=== PATIENT | female | born 1985 | race Caucasian/White ===

== ENCOUNTER 2021-08-17 14:10 | Outpatient (CLI) | payer OTHER ==
[~2021-08-17 14:10] MED LIST: AZIT500T2 PO; FLONASE PO; GABA600T7 PO; IBUP-1223 PO; MELA3TAB31 PO; MELO15TA6 PO; PREG25CA PO; VITAMIN D PO; WELLBUTRIN PO
[2021-08-17] MEDS ORDERED: NAPR220C2 PO (14:46)
[2021-08-17] MEDS ORDERED: MULT-449 PO (14:46)
[2021-08-17] MEDS ORDERED: apple cider vinegar PO (14:46)
[2021-08-17] MEDS ORDERED: ACET-2065 PO (14:46)
[2021-08-17 15:11] LABS: BASOPHILS % (AUTO) 0 % (0-1); EOSINOPHILS % (AUTO) 2 % (1-7); LYMPHOCYTES % (AUTO) 33 % (22-44); MEAN CORPUSCULAR HEMOGLOBIN 33.2 pg (27.0-34.8); MEAN CORPUSCULAR HGB CONC 34.6 g/dL (32.4-35.8); MONOCYTES % (AUTO) 8 % (2-9); NEUTROPHILS % (AUTO) 57 % (42-75); PLATELET COUNT 258 x10^3/uL (130-400); RED BLOOD COUNT 4.39 x10^6/uL (3.82-5.3)
[2021-08-17 15:17] LABS: ANION GAP 7 mmol/L (5-15); CALCIUM 8.2 mg/dL (8.5-10.1); CHLORIDE 110 mmol/L (98-107); CREATININE 0.67 mg/dL (0.55-1.02)
[2021-08-17 15:19] LABS: MICROSCOPIC INDICATED
== END 2021-08-17 23:59 | disposition home or self-care (01) ==
LOC: STAR 14:10
PROVIDERS: ATTEND Obstetrics & Gynecology
DX: Z01.812 Encounter for preprocedural laboratory examination (principal); Z20.822 Contact with and (suspected) exposure to COVID-19; N92.0 Excessive and frequent menstruation with regular cycle; N94.6 Dysmenorrhea, unspecified
CPT/HCPCS: 36415; 80048; 81001; 84702; 85025; 87086; 87635

== ENCOUNTER 2021-08-23 10:17 | Inpatient (IN) | payer OTHER ==
[~2021-08-23] VITALS: Ht 157.5 cm; Wt 91.3 kg
[~2021-08-23 10:17] MED LIST changes: +ACET-2065 PO; +MULT-449 PO; +NAPR220C2 PO; +apple cider vinegar PO
[2021-08-23] MEDS ORDERED: CHLORHEXIDINE 15 ML UDC ONE (10:52)
[2021-08-23] MEDS ORDERED: BUPIVACAINE/PF 0.25% ONE (10:54)
[2021-08-23] MEDS ORDERED: EPINEPHRINE 1 MG/ML, 1ML ONE (10:54)
[2021-08-23] MEDS ORDERED: LACTATED RINGERS 1,000 ML IV SCH (11:00)
[2021-08-23] MEDS ORDERED: CHLORHEXIDINE 15 ML UDC PO ONE (11:00)
[2021-08-23] MEDS ORDERED: MEPERIDINE/PF 25MG/0.5ML IVPush PRN (11:30)
[2021-08-23] MEDS ORDERED: DIPHENHYDRAMINE 50 MG/ML, 1ML IVPush PRN (11:30)
[2021-08-23] MEDS ORDERED: PROMETHAZINE 25 MG/ML, 1ML IVPush PRN (11:30)
[2021-08-23] MEDS ORDERED: HALOPERIDOL 5 MG/ML IV PRN (11:30)
[2021-08-23] MEDS ORDERED: LABETALOL 5MG/ML, 20ML IV PRN (11:30)
[2021-08-23] MEDS ORDERED: ACETAMINOPHEN 325 MG TABLET PO PRN (11:30)
[2021-08-23] MEDS ORDERED: hydrALAzine 20 MG/ML, 1ML IV PRN (11:30)
[2021-08-23] MEDS ORDERED: OXYcodone 5 MG/5 ML ORAL.SOL UDC PO PRN (11:30)
[2021-08-23] MEDS ORDERED: FENTANYL PF 250 MCG/5ML ONE (11:37)
[2021-08-23] MEDS ORDERED: MIDAZOLAM 1 MG/ML, 5ML ONE (11:37)
[2021-08-23] MEDS ORDERED: HYDROmorphone 2 MG/ML, 1ML ONE ×3 (13:04→14:49)
[2021-08-23] MEDS ORDERED: INDIGO CARMINE 0.8%, 5ML ONE (13:42)
[2021-08-23] MEDS ORDERED: CEFAZOLIN 1,000 MG ONE (13:45)
[2021-08-23] MEDS ORDERED: GLYCOPYRROLATE 0.2MG/1ML, 5ML ONE (13:45)
[2021-08-23] MEDS ORDERED: NEOSTIGMINE 1 MG/ML, 10ML ONE (13:45)
[2021-08-23] MEDS ORDERED: ONDANSETRON 2MG/ML, 2ML ONE (13:45)
[2021-08-23] MEDS ORDERED: PROPOFOL 10 MG/ML, 20ML ONE (13:45)
[2021-08-23] MEDS ORDERED: DEXAMETHASONE 4 MG/ML, 1ML ONE (13:45)
[2021-08-23] MEDS ORDERED: SUCCINYLCHOLINE 20 MG/ML, 10ML ONE (13:45)
[2021-08-23] MEDS ORDERED: ROCURONIUM 10MG/ML,5ML ONE (13:45)
[2021-08-23] MEDS ORDERED: FENTANYL PF 100 MCG/2ML ONE (14:05)
[2021-08-23] MEDS: FENTANYL PF 100 MCG/2ML IV PRN ×2 (14:06→14:15)
[2021-08-23] MEDS ORDERED: OXYcodone 5 MG/5 ML ORAL.SOL UDC ONE (14:15)
[2021-08-23] MEDS: HYDROmorphone 1 MG/ML, 1ML INJ IVPush PRN ×5 (14:16→14:58)
[2021-08-23] MEDS ORDERED: ONDANSETRON 2MG/ML, 2ML IV PRN (17:30)
[2021-08-23] MEDS ORDERED: morphine SULFATE 10 MG/ML, 1ML IV PRN (17:30)
[2021-08-23] MEDS ORDERED: IBUPROFEN 600 MG TABLET PO PRN ×2 (17:30)
[2021-08-23] MEDS: KETOROLAC 30 MG/1 ML IV PRN (18:54)
[2021-08-23] MEDS: OXYcodone/APAP 5/325MG TABLET PO PRN ×3 (18:57→23:56)
[2021-08-23 20:00] VITALS: BP 116/78
[2021-08-23] MEDS: LACTATED RINGERS 1,000 ML IV SCH (20:00)
[2021-08-24 00:09] VITALS: BP 104/67
[2021-08-24] MEDS: KETOROLAC 30 MG/1 ML IV PRN ×2 (03:50→10:04)
[2021-08-24] MEDS: OXYcodone/APAP 5/325MG TABLET PO PRN ×2 (03:51→08:35)
[2021-08-24] MEDS: LACTATED RINGERS 1,000 ML IV SCH (04:00)
[2021-08-24 07:44] VITALS: BP 112/74
[2021-08-24] MEDS ORDERED: OXYC1TAB12 PO (09:38)
[2021-08-24] MEDS ORDERED: IBUP200T49 PO (09:39)
== END 2021-08-24 11:00 | disposition home or self-care (01) | DRG 743 ==
LOC: OUT 10:17 → 4NE 15:48 → OUT 16:13 → 4NE 16:13
PROVIDERS: ADMIT Obstetrics & Gynecology; ATTEND Obstetrics & Gynecology
PROC: 0UB77ZZ Excision of Bilateral Fallopian Tubes, Via Natural or Artificial Opening (ICD-10-PCS; 2021-08-23)
PROC: 0UT9FZZ Resection of Uterus, Via Natural or Artificial Opening With Percutaneous Endoscopic Assistance (ICD-10-PCS; principal; 2021-08-23 12:00)
DX: N94.6 Dysmenorrhea, unspecified (principal); F32.9 Major depressive disorder, single episode, unspecified; G43.909 Migraine, unspecified, not intractable, without status migrainosus; Z98.51 Tubal ligation status
CPT/HCPCS: 36415; 81025; 86850; 86900; 88307; G0378; J0171; J0690; J1100; J1170; J1885; J2250; J2405; J2704; J2710; J3010; J0330; J1200; J2270; J7120